=== PATIENT | male | born 1975 | race Caucasian/White ===

== ENCOUNTER 2021-04-10 07:41 | Day surgery (SDC) | payer BC ==
[2021-04-08 11:48] VITALS: BMI 29.3
[2021-04-10] MEDS ORDERED: PROPOFOL 20 ML ONE ×3 (08:07→08:34)
[2021-04-10] MEDS ORDERED: MIDAZOLAM HCL 2 MG/2 ML SINGLE DOSE VIAL ONE ×2 (08:08→10:58)
[2021-04-10] MEDS ORDERED: SUCCINYLCHOLINE CHLORIDE 200 MG/10 ML SYRINGE ONE (08:08)
[2021-04-10] MEDS ORDERED: ceFAZolin SODIUM 1 GM VIAL ONE (08:34)
[2021-04-10] MEDS ORDERED: BUPIVACAINE HCL/PF 0.25% (2.5MG/ML) 10 ML VIAL ONE (09:55)
[2021-04-10] MEDS ORDERED: oxyCODONE HCL 5 MG TABLET PO PRN (10:07)
[2021-04-10] MEDS ORDERED: PROMETHAZINE HCL 25 MG/1 ML VIAL IVPUSH PRN (10:07)
[2021-04-10] MEDS ORDERED: ONDANSETRON 4 MG/2 ML VIAL IVPUSH PRN (10:07)
[2021-04-10 11:17] VITALS: TEMP 97.8
[2021-04-10 11:40] VITALS: BP 131/74; PULSE 75
== END 2021-04-10 12:00 | disposition home or self-care (01) ==
LOC: FASU 07:41
PROVIDERS: ATTEND Orthopaedic Surgery Hand Surgery
PROC: 0JNK0ZZ Release Left Hand Subcutaneous Tissue and Fascia, Open Approach (ICD-10-PCS; principal; 2021-04-10 08:43)
DX: M72.0 Palmar fascial fibromatosis [Dupuytren] (principal)
CPT/HCPCS: 94760